=== PATIENT | male | born 1975 | race Caucasian/White ===

== ENCOUNTER 2022-07-17 16:41 | Outpatient (CLI) | payer OTHER | END 2022-07-17 16:42 | disposition short-term general hospital (02) | LOC: EMS 16:41 | DX: R07.89 Other chest pain (principal); M79.602 Pain in left arm; R06.02 Shortness of breath | CPT/HCPCS: A0425; A0427 ==

== ENCOUNTER 2022-10-03 12:24 | Emergency (ER) | payer OTHER ==
[2022-10-03] MEDS ORDERED: BUFFERED LIDOCAINE 10 ML SYRINGE SUBQ STA (13:21)
--- NOTE | 2022-10-03 13:37 | ED Physician Documentation ---
PD HPI UPPER EXT INJURY - Stated complaint Stated Complaint: LT FINGER LAC - Chief complaint Chief Complaint: Laceration - History obtained from History obtained from: Patient - Additonal information Additional information: 46-year-old gentleman who is right-handed and up-to-date on tetanus was using a circular saw at home and cut the tip of his left index finger just prior to arrival. PD PAST MEDICAL HISTORY - Present Medications Home Medications: Ambulatory Orders Medication Instructions Recorded Confirmed cephALEXin [Keflex] 500 mg PO Q6H #20 cap 10/03/22 - Allergies Allergies/Adverse Reactions: Allergies Allergy/AdvReac Type Severity Reaction Status Date / Time No Known Drug Allergies Allergy Verified 10/03/22 13:07 PD ED PE NORMAL - Vitals Vital signs reviewed: Yes - General General: Alert and oriented X 3, No acute distress - Extremities Extremities: Other (Focused examination of the left index finger shows that there is a defect measuring just less than involving the nail. No palpable bone. 1 cm) - Neuro Neuro: Alert and oriented X 3, Normal speech Results - Vitals Vitals: Vital Signs - 24 hr 10/03/22 10/03/22 13:04 14:05 Temperature 36.1 C L Heart Rate 57 L 57 L Respiratory 18 16 Rate Blood Pressure 103/62 110/87 H O2 Saturation 99 99 Oxygen O2 Source Room air - Rads (name of study) Three-view x-ray of the left index finger demonstrates a little nondisplaced tuft chip fracture. Radiology: Final report received, EMP read indepedently PD Medical Decision Making - ED course ED course: The wound was irrigated and dressed with Gelfoam and tube gauze for bleeding. There is no exposed bone, although on x-ray there was a little bony involvement. We discussed options for treatment including open treatment versus digital block with rongeuring of the bone and attempted closure and he opted for the former. Departure - Departure Disposition: 01 Home, Self Care Clinical Impression: Fingertip amputation Qualifiers: Encounter type: initial encounter Qualified Code(s): S68.119A - Complete traumatic metacarpophalangeal amputation of unspecified finger, initial encounter Open fracture of finger of left hand Qualifiers: Encounter type: initial encounter Finger: index finger Phalanx: distal Fracture alignment: nondisplaced Qualified Code(s): S62.661B - Nondisplaced fracture of distal phalanx of left index finger, initial encounter for open fracture Condition: Good Record reviewed to determine appropriate education?: Yes Instructions: ED Laceration Amputation Finger Tip Open Tx, ED Fx Finger Open Prescriptions: cephALEXin [Keflex] 500 mg PO Q6H #20 cap Comments: Keep the current dressing on until Tuesday morning. After that you can gently remove it, you may need to soak it off. Wash briefly with soap and water and then apply bacitracin ointment which is available [id number], a nonstick fingertip dressing, and a loose wrap with the splint overlying it. You should follow-up with an orthopedic hand surgeon within the week. The closest to use at the [facility], the phone number is [phone], call tomorrow for an appointment. Discharge Date/Time: 10/03/22 14:06
[2022-10-03] MEDS ORDERED: cephALEXin 250 MG CAPSULE PO STA (13:51)
[2022-10-03] MEDS ORDERED: IBUPROFEN 800 MG TABLET PO STA (13:53)
[2022-10-03 14:06] VITALS: BP 110/87
--- NOTE | 2022-10-03 14:47 | XRAY Report ---
PROCEDURE: Finger(s) LT INDICATIONS: fingertip inj TECHNIQUE: AP hand, 3 views of the index finger(s) acquired. COMPARISON: None FINDINGS: Bones: Nondisplaced fracture of the tuft of the distal phalanx of the index finger. No suspicious maria e ny lesions. Soft tissues: No suspicious soft tissue calcifications. IMPRESSION: Nondisplaced fracture of the tuft of the distal phalanx of the index finger. Reviewed by: Amos Garza on 10/03/2022 1:46 PM [facility] Approved by: Amos Garza on 10/03/2022 1:46 PM [facility] Station ID: [id number]
== END 2022-10-03 14:06 | disposition home or self-care (01) ==
LOC: ED 12:24
DX: S62.661B Nondisplaced fracture of distal phalanx of left index finger, initial encounter for open fracture (principal); W27.0XXA Contact with workbench tool, initial encounter; Y93.89 Activity, other specified
CPT/HCPCS: 73140; 99283; A9270

== ENCOUNTER 2023-01-15 14:26 | Emergency (ER) | payer OTHER ==
[2023-01-15 14:56] VITALS: BP 114/73
[2023-01-15] MEDS ORDERED: lidocaine 1% 20 ML MDV SUBQ ONE (15:30)
--- NOTE | 2023-01-15 16:04 | ED Physician Documentation ---
PD HPI UPPER EXT INJURY - Stated complaint Stated Complaint: RT ARM LAC - Chief complaint Chief Complaint: Laceration - History obtained from History obtained from: Patient - History of Present Illness Location: Right, Forearm Type of injury: Laceration Where injury occurred: Home Timing - onset: Today Timing - duration: Minutes Timing - details: Abrupt onset, Still present Improved by: Rest, Immobilization Worsened by: Moving, Palpating Associated symptoms: No: Weakness, Numbness, Tingling, Swelling, Discolored Similar symptoms before: Diagnosis (laceration) Recently seen: Not recently seen - Additonal information Additional information: Previously well 47-year-old Jagdish Conner was working on his sailboat today using a power cut off tool that has an oscillating blade. He tried to bend the blade slightly. The blade broke and his arm slid across the broken blade and lacerated his right forearm. He has a laceration that goes right down to the flexor tendon. He does not have any functional loss. He is up to date on his tetanus. Review of Systems Constitutional: denies: Fever Respiratory: denies: Cough GI: denies: Vomiting, Diarrhea Skin: reports: Laceration (s) PD PAST MEDICAL HISTORY - Present Medications Home Medications: Ambulatory Orders Medication Instructions Recorded Confirmed cephALEXin [Keflex] 500 mg PO Q6H #20 cap 10/03/22 - Allergies Allergies/Adverse Reactions: Allergies Allergy/AdvReac Type Severity Reaction Status Date / Time cyclobenzaprine AdvReac Unknown Verified 01/15/23 14:57 [From Flexeril] methocarbamol AdvReac Unknown Verified 01/15/23 14:55 PD ED PE NORMAL - Vitals Vital signs reviewed: Yes (normal ) - General General: Alert and oriented X 3, No acute distress, Well developed/nourished - HEENT HEENT: Atraumatic, PERRL, EOMI - Respiratory Respiratory: No respiratory distress - Derm Derm: Normal color, Warm and dry, No rash - Extremities Extremities: Other (7cm laceration to the volar surface of the right forearm. cut to the fascia but does not cut the facia or the flexor tendon. 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, No motor deficit, No sensory deficit, Normal speech Eye Opening: Spontaneous Motor: Obeys Commands Verbal: Oriented GCS Score: 15 - Psych Psych: Normal mood, Normal affect Results - Vitals Vitals: Vital Signs - 24 hr 01/15/23 14:46 Temperature 36.5 C Heart Rate 60 Respiratory 16 Rate Blood Pressure 114/73 O2 Saturation 99 Oxygen O2 Source Room air Procedures - Laceration (location) R forearm Wound type: Linear, Into subcut fat, Clean Neurovascular status: Sensory intact, Motor intact, Vascular intact Anesthesia: Lidocaine 1% Wound preparation: Hibiclens, Irrigated copiously NS, Wound explored, To the base Skin layer closure: Faye Other: Patient tolerated well, No complications, Neurovascular intact, Dressing applied, Tetanus UTD PD Medical Decision Making - ED course Complexity details: considered differential, d/w patient ED course: 47-year-old male with a 7 cm laceration to his right volar forearm has faye placed and in good repair. Departure - Departure Disposition: 01 Home, Self Care Clinical Impression: Forearm laceration Qualifiers: Encounter type: initial encounter Laterality: right Qualified Code(s): S51.811A - Laceration without foreign body of right forearm, initial encounter Instructions: ED Laceration Ext Sutr Stap Tape Follow-Up: RIZWANA BUCIO MD [Primary Care Provider] - Comments: Jagdish today it looks like you have cut your forearm and you have missed the tendons or the muscles. We have closed the skin with some faye and these will need to be removed in about 10 days. This requires a special device to remove them so a follow-up with your primary is indicated or alternatively you can have them removed here. Discharge Date/Time: 01/15/23 16:26
[2023-01-15] MEDS ORDERED: BACITRACIN ZINC OINT 1 PACKET TOP STA (16:13)
== END 2023-01-15 16:26 | disposition home or self-care (01) ==
LOC: ED 14:26
DX: S51.811A Laceration without foreign body of right forearm, initial encounter (principal); W29.8XXA Contact with other powered hand tools and household machinery, initial encounter
CPT/HCPCS: 12002; 99281